=== PATIENT | male | born 1965 | race Hispanic/Latino ===

== ENCOUNTER 2019-07-04 08:51 | Inpatient (IN) | payer OTHER, SELFPAY ==
[2019-07-04] VITALS (7 sets, daily range): BP systolic 136–152; BP diastolic 59–86
[~2019-07-04] VITALS: Ht 172.7 cm; Wt 781.6 kg
[~2019-07-04 08:51] MED LIST: ASPI-1005 PO; ATOR20TA65 PO; LISI-617 PO; METF-446 PO; METO25 PO; PRAS10TA6 PO
[2019-07-04 09:41] LABS: BASOPHILS % (AUTO) 1.1 % (0.0-5.0); EOSINOPHILS % (AUTO) 6.1 % (0.0-8.0); HEMATOCRIT 44.9 % (42-54); LYMPHOCYTES % (AUTO) 22.8 % (21.0-51.0); MEAN CORPUSCULAR HEMOGLOBIN 27.5 pg (27.0-33.0); MEAN CORPUSCULAR HGB CONC 33.5 g/dL (32.0-36.0); MEAN CORPUSCULAR VOLUME 82.1 fL (79-99); MONOCYTES % (AUTO) 5.5 % (3.0-13.0); NEUTROPHILS % (AUTO) 64.5 % (40.0-77.0); PLATELET COUNT (AUTO) 201 K/uL (130-400); RED BLOOD CELL COUNT(AUTO) 5.47 MIL/uL (4.50-6.20); RED CELL DISTRIBUTION WIDTH 13.4 % (11.0-15.5); WHITE BLOOD COUNT (AUTO) 7.6 K/uL (4.8-10.8)
[2019-07-04 09:51] LABS: CREATININE 0.9 mg/dL (0.5-1.5); INR 0.92 (0.85-1.15); PARTIAL THROMBOPLASTIN TIME 27.1 SEC (26.3-35.5); POTASSIUM 4.1 mmol/L (3.5-5.1); PROTHROMBIN TIME 9.7 SEC (9.6-11.6)
[2019-07-04] MEDS ORDERED: NITROGLYCERIN 1GM/1 INCH PACKET TD ONE (09:51)
[2019-07-04 09:56] LABS: ALBUMIN 3.5 g/dL (3.5-5.0); BILIRUBIN,TOTAL 0.3 mg/dL (0.2-1.0); TOTAL PROTEIN, SERUM 7.6 g/dL (6.0-8.3)
[2019-07-04 10:34] LABS: APPEARANCE,URINE CLEAR (CLEAR); BILIRUBIN,URINE NEGATIVE (NEGATIVE); COLOR,URINE YELLOW (YELLOW); GLUCOSE, URINE (UA) >=1000 mg/dL (NEGATIVE); KETONES,URINE 5 mg/dL (NEGATIVE); LEUKOCYTE ESTERASE ,URINE NEGATIVE (NEGATIVE); NITRATE,URINE NEGATIVE (NEGATIVE); OCCULT BLOOD,URINE NEGATIVE (NEGATIVE); PH,URINE 5.5 (5.0-8.0); PROTEIN,URINE 30 mg/dL (NEGATIVE); UROBILINOGEN,URINE 0.2 mg/dL (0.2-1.0)
[2019-07-04] MEDS ORDERED: MORPHINE SULFATE 4 MG/1ML SYG ONE (10:49)
[2019-07-04] MEDS ORDERED: SODIUM CHLORIDE 0.9% 1000ML 1,000 ML IV ONE (10:50)
[2019-07-04] MEDS ORDERED: ONDANSETRON HCL 4 MG/2 ML VIAL ONE (11:01)
[2019-07-04 11:21] LABS: BACTERIA,URINE Rare /HPF (None Seen); RBC,URINE 0-1 /HPF (0-1); SQUAMOUS EPITHELIAL CELL,UR Rare /HPF (0-2); WBC,URINE 0-1 /HPF (0-1)
[2019-07-04] MEDS: SODIUM CHLORIDE 0.9% 1000ML 1,000 ML IV SCH ×2 (11:23→21:23)
[2019-07-04] MEDS ORDERED: NITROGLYCERIN 0.4 MG SL TAB SL ONE (11:24)
[2019-07-04] MEDS ORDERED: METOPROLOL TARTRATE 1 MG/ML 5ML VIAL IV ONE ×2 (11:26→11:32)
[2019-07-04 11:28] LABS: AMPHET/METH SCREEN,URINE NEGATIVE (NEGATIVE); BARBITURATE SCREEN, URINE NEGATIVE (NEGATIVE); BENZODIAZEPINES SCREEN,URINE NEGATIVE (NEGATIVE); CANNABINOID SCREEN,URINE NEGATIVE (NEGATIVE); COCAINE SCREEN,URINE NEGATIVE (NEGATIVE); OPIATE SCREEN,URINE NEGATIVE (NEGATIVE); PHENCYCLIDINE SCREEN,URINE NEGATIVE (NEGATIVE)
[2019-07-04] MEDS ORDERED: DEXTROSE 50%-WATER 50 ML DISP.SYRIN IV PRN (11:30)
[2019-07-04] MEDS: NITROGLYCERIN 1GM/1 INCH PACKET TD SCH ×4 (11:30→21:28)
[2019-07-04] MEDS ORDERED: ACETAMINOPHEN 325 MG TAB PO PRN (11:30)
[2019-07-04] MEDS: INSULIN HUMULIN R 100 UNIT/ML 3ML SQ SCH ×3 (11:30→21:49)
[2019-07-04] MEDS ORDERED: NITROGLYCERIN 0.4 MG SL TAB SL PRN (11:30)
[2019-07-04] MEDS ORDERED: GLUCAGON 1MG KIT 1 MG ML IM PRN (11:30)
[2019-07-04] MEDS ORDERED: ASPIRIN 325 MG TABLET ONE (11:44)
[2019-07-04] MEDS ORDERED: BIVALIRUDIN 250 MG/VIAL IV ONE (12:18)
[2019-07-04] MEDS ORDERED: IOHEXOL-350 50ML VIAL IV ONE (12:18)
[2019-07-04] MEDS ORDERED: LIDOCAINE HCL 2% 20ML ONE (12:18)
[2019-07-04] MEDS ORDERED: NITROGLYCERIN 5 MG/ML 10 ML VIAL IV ONE (12:18)
[2019-07-04] MEDS ORDERED: IOHEXOL-350 75 ML VIAL IV ONE (12:18)
[2019-07-04] MEDS ORDERED: MIDAZOLAM HCL 1 MG/ML 2ML VIAL ONE (13:09)
[2019-07-04] MEDS ORDERED: SODIUM CHLORIDE 0.9% 1000ML 1,000 ML IV SCH (13:49)
[2019-07-04] MEDS: METOPROLOL TARTRATE 25 MG TAB PO SCH ×2 (14:00→22:00)
[2019-07-04] MEDS ORDERED: VANCOMYCIN IV SCH (14:15)
[2019-07-04] MEDS ORDERED: [UNRECOGNIZED DRUG - OTHER] IV SCH (14:15)
[2019-07-04] MEDS ORDERED: COMPOUND IV REFRIGERATED 1 EACH IVSOLN MISC PRN (14:30)
--- NOTE | 2019-07-04 19:30 | NUR ---
WAS NOTIFIED PT HAD A THREE SECOND PAUSE PER TELE MONITOR. STIRP PRINTED AND VERIFIED.
--- NOTE | 2019-07-04 19:40 | NUR ---
DR. LAWRENCE NOTIFIED OF PAUSE. STATED TO CONTINUE TO MONITOR. NO DISTRESS NOTED.
[2019-07-04] MEDS ORDERED: INSULIN GLARGINE 100 UNITS/ML 10 ML VIAL SQ SCH (21:00)
[2019-07-04] MEDS: FAMOTIDINE/PF 20 MG/2 ML VIAL IV SCH (21:29)
[2019-07-04] MEDS: ATORVASTATIN CALCIUM 20 MG TABLET PO SCH (21:29)
--- NOTE | 2019-07-04 21:30 | NUR ---
PT STATED HAVING CHEST PAIN AND HEADACHE DUE TO THE NITRO. PT HAS BEEN HAVING ON AND OFF CHEST PAIN THROUGHOUT THE DAY. CONTINUES ON IV FLUIDS. NITRO PATCH APPLIED. TYLENOL PRN GIVEN FOR PAIN.
[2019-07-05] VITALS (10 sets, daily range): BP systolic 133–170; BP diastolic 71–85
[2019-07-05] MEDS: NITROGLYCERIN 1GM/1 INCH PACKET TD SCH ×5 (01:09→21:51)
[2019-07-05] MEDS: METOPROLOL TARTRATE 25 MG TAB PO SCH ×3 (01:11→21:51)
[2019-07-05 03:56] LABS: HEMATOCRIT 39.7 % (42-54); MEAN CORPUSCULAR HEMOGLOBIN 27.9 pg (27.0-33.0); MEAN CORPUSCULAR HGB CONC 33.4 g/dL (32.0-36.0); MEAN CORPUSCULAR VOLUME 83.5 fL (79-99); NUCLEATED RED BLOOD CELLS 0.2 % (0.0-0.19); PLATELET COUNT (AUTO) 179 K/uL (130-400); RED BLOOD CELL COUNT(AUTO) 4.76 MIL/uL (4.50-6.20); RED CELL DISTRIBUTION WIDTH 13.5 % (11.0-15.5); WHITE BLOOD COUNT (AUTO) 9.9 K/uL (4.8-10.8)
[2019-07-05 04:08] LABS: ALBUMIN 2.7 g/dL (3.5-5.0); BILIRUBIN,TOTAL 0.1 mg/dL (0.2-1.0); CREATININE 0.9 mg/dL (0.5-1.5); POTASSIUM 4.4 mmol/L (3.5-5.1); TOTAL PROTEIN, SERUM 5.8 g/dL (6.0-8.3)
[2019-07-05 04:17] LABS: HEMOGLOBIN A1C 12.2 % (4.0-6.0)
[2019-07-05] MEDS: SODIUM CHLORIDE 0.9% 1000ML 1,000 ML IV SCH (05:18)
--- NOTE | 2019-07-05 07:32 | NUR ---
HTN BP 168/35 BP MORNING MEDS GIVEN. BP RECHECK @ 152/77 WILL CONTINUE TO MONITOR. PRIMARY MD TO BE NOTIFIED.
--- NOTE | 2019-07-05 07:45 | NUR ---
AM ASSESSMENT PT LAYING SITTING IN BED, WATCHING TV. FAMILY @ BEDSIDE. A/O X 3. NO SOB. NO DISTRESS NOTED. DENIES CHEST PAIN OR DISCOMFORT. DENIES PALPITATIONS. TELE: SB 50-SR 60s. DENIES N/V AND/OR DIARRHEA. UP AD LIANA. INSTRUCTED TO CALL FOR ASSISTANCE. CALL [facility] W/IN REACH. PENDING DR ORTEGA CONSULT FOR POSS CABG TOMORROW.
[2019-07-05] MEDS: ASPIRIN 325 MG TABLET PO SCH (08:11)
[2019-07-05] MEDS: FAMOTIDINE/PF 20 MG/2 ML VIAL IV SCH ×2 (08:12→21:51)
[2019-07-05] MEDS ORDERED: LISINOPRIL 10 MG TABLET PO SCH (09:00)
[2019-07-05] MEDS: INSULIN HUMULIN R 100 UNIT/ML 3ML SQ SCH ×3 (12:13→21:44)
[2019-07-05] MEDS ORDERED: LABETALOL HCL 5 MG/ML 20ML VIAL IV PRN (12:45)
[2019-07-05] MEDS ORDERED: ACETAMINOPHEN EXTRA STRENGTH 500 MG TABLET PO PRN (13:15)
[2019-07-05] MEDS ORDERED: MORPHINE SULFATE 2 MG/ML 1ML SYG IVP PRN (13:15)
--- NOTE | 2019-07-05 14:00 | NUR ---
HTN BP 163/85. MF NOTIFIED. NO BP PRN MEDS PROFILED. ORDER RECEIVED FOR LABETALOL IV PRN. @ 1336 10 MG IV LABETALOL GIVEN. BP RECHECK 133/72.
--- NOTE | 2019-07-05 15:40 | NUR ---
DC PLAN VISITED WITH PATIENT. PATIENT LIVES WITH FRIEND. INDEPENDENT ABLE TO PERFORM ADL'S. PATIENT HAS NO SERVICES OR DME'S. FEELS SAFE TO RETURN HOME. PENDING CABG. Addendum: 07/05/19 at 1542 by CELINA BONILLA RN CM Amended: Links added.
[2019-07-05] MEDS: INSULIN GLARGINE 100 UNITS/ML 10 ML VIAL SQ SCH (21:50)
[2019-07-05] MEDS: ATORVASTATIN CALCIUM 20 MG TABLET PO SCH (21:51)
[2019-07-06] VITALS (47 sets, daily range): BP systolic 70–157; BP diastolic 42–84
[2019-07-06] MEDS: NITROGLYCERIN 1GM/1 INCH PACKET TD SCH (02:00)
[2019-07-06 04:17] LABS: HEMATOCRIT 40.2 % (42-54); MEAN CORPUSCULAR HEMOGLOBIN 27.6 pg (27.0-33.0); MEAN CORPUSCULAR HGB CONC 33.3 g/dL (32.0-36.0); MEAN CORPUSCULAR VOLUME 82.9 fL (79-99); PLATELET COUNT (AUTO) 197 K/uL (130-400); RED BLOOD CELL COUNT(AUTO) 4.85 MIL/uL (4.50-6.20); RED CELL DISTRIBUTION WIDTH 13.7 % (11.0-15.5); WHITE BLOOD COUNT (AUTO) 8.9 K/uL (4.8-10.8)
[2019-07-06 04:23] LABS: INR 0.92 (0.85-1.15); PARTIAL THROMBOPLASTIN TIME 26.8 SEC (26.3-35.5); PROTHROMBIN TIME 9.7 SEC (9.6-11.6)
[2019-07-06 04:30] LABS: ALBUMIN 2.9 g/dL (3.5-5.0); BILIRUBIN,TOTAL 0.2 mg/dL (0.2-1.0); MAGNESIUM 1.7 mg/dL (1.80-2.40); POTASSIUM 3.7 mmol/L (3.5-5.1); TOTAL PROTEIN, SERUM 6.2 g/dL (6.0-8.3)
[2019-07-06 04:31] LABS: BAND NEUTROPHILS % (MANUAL) 4 % (0-2); EOSINOPHILS % (MANUAL) 10 % (1-6); LYMPHOCYTES % (MANUAL) 25 % (22-44); MAN.DIFF COMMENT-IMPRESSION MANUAL DIFFERENTIAL; MONOCYTES % (MANUAL) 7 % (2-9); PLATELET MORPHOLOGY COMMENT ADEQUATE; SEGMENTED NEUTROPHILS % 54 % (40-70)
[2019-07-06] MEDS ORDERED: MAGNESIUM 2GM PREMIX 50ML 50 ML IV PRN (04:45)
[2019-07-06] MEDS: METOPROLOL TARTRATE 25 MG TAB PO SCH (05:48)
[2019-07-06] MEDS: INSULIN GLARGINE 100 UNITS/ML 10 ML VIAL SQ SCH (06:13)
[2019-07-06] MEDS: INSULIN HUMULIN R 100 UNIT/ML 3ML SQ SCH (06:14)
[2019-07-06] MEDS ORDERED: NITROGLYCERIN 50 MG/D5% WATER 1 BOT ONE (07:14)
[2019-07-06] MEDS ORDERED: SODIUM CHLORIDE 0.9% 1000ML 1,000 ML IV ONE (07:37)
[2019-07-06] MEDS ORDERED: ESMOLOL HCL 10 MG/ML 10 ML VIAL ONE (07:47)
[2019-07-06] MEDS ORDERED: PROTAMINE SULFATE 10 MG/ML 25ML VIAL IV ONE (07:47)
[2019-07-06] MEDS ORDERED: FENTANYL CITRATE PF 50 MCG/1 ML 20ML VIAL IJ ONE (07:48)
[2019-07-06] MEDS ORDERED: MIDAZOLAM HCL 1 MG/ML 5ML VIAL ONE (07:48)
[2019-07-06] MEDS ORDERED: AMINOCAPROIC ACID 250 MG/ML 20 ML VIAL IV ONE (07:48)
[2019-07-06] MEDS ORDERED: NOREPINEPHRINE BITARTRATE 1 MG/1 ML ML IV ONE (07:48)
[2019-07-06] MEDS ORDERED: SODIUM BICARB 50MEQ 50ML VIAL ONE (07:48)
[2019-07-06] MEDS ORDERED: EPINEPHRINE 1 MG/ML AMPULE ONE (07:48)
[2019-07-06] MEDS ORDERED: LIDOCAINE PF 2% 5ML ABBOJECT ONE (07:48)
[2019-07-06] MEDS ORDERED: HEPARIN SODIUM 1000UNIT/ML 10ML VIAL ONE (07:48)
[2019-07-06] MEDS ORDERED: PROPOFOL 10 MG/ML 20ML VIAL IV ONE (07:48)
[2019-07-06] MEDS ORDERED: ROCURONIUM 10MG/1ML SYR 10 MG/ML ML ONE ×2 (07:49→09:32)
[2019-07-06] MEDS ORDERED: LIDOCAINE HCL-MPF 1% 5ML AMP IJ ONE (07:49)
[2019-07-06] MEDS ORDERED: ETOMIDATE 2 MG/ML 10 ML VIAL ONE (07:50)
[2019-07-06] MEDS ORDERED: AMIODARONE HCL 50 MG/ML 3 ML VIAL ONE (07:51)
[2019-07-06] MEDS ORDERED: MAGNESIUM SULFATE 1 GM/2 ML VIAL ONE (07:52)
[2019-07-06] MEDS ORDERED: CEFAZOLIN SODIUM 1 GM VIAL IVP PRN (08:30)
[2019-07-06 08:38] LABS: ABG BASE EXCESS -2.2 mmol/L (-2.0-3.0); ABG HCO3 20.8 mmol/L (21.0-28.0); ABG OXYGEN SATURATION 99.6 % (95.0-99.0); ABG PCO2 31 mmHg (35-48)
[2019-07-06] MEDS ORDERED: OCTYL 2-CYANOACRYLATE 1 EACH TP ONE (08:42)
[2019-07-06] MEDS ORDERED: PAPAVERINE HCL 30 MG/ML 2ML VIAL ONE (08:42)
[2019-07-06] MEDS ORDERED: BACITRACIN 50,000 UNIT VIAL ONE (08:42)
[2019-07-06] MEDS: ASPIRIN 325 MG TABLET PO SCH (09:00)
[2019-07-06] MEDS: FAMOTIDINE/PF 20 MG/2 ML VIAL IV SCH ×3 (09:00→20:48)
[2019-07-06] MEDS ORDERED: SODIUM CHLORIDE 0.9% 500ML 500 ML IV SCH (09:06)
[2019-07-06 09:13] LABS: ABG BASE EXCESS 1.7 mmol/L (-2.0-3.0); ABG OXYGEN SATURATION 99.5 % (95.0-99.0); ABG PCO2 40 mmHg (35-48)
[2019-07-06] MEDS ORDERED: ACETAMINOPHEN 650 MG SUPPOSITORY RC PRN (09:15)
[2019-07-06] MEDS ORDERED: AMINOCAPROIC ACID 15,000 MG in SODIUM CHLORIDE 0.9% 250 ML IV SCH (09:15)
[2019-07-06] MEDS ORDERED: NOREPINEPHRINE 4MG/NS 250ML 250 ML IV PRN (09:15)
[2019-07-06] MEDS ORDERED: DEXTROSE 50%-WATER 50 ML DISP.SYRIN IV PRN (09:15)
[2019-07-06] MEDS ORDERED: SODIUM CHLORIDE 0.9% 250 ML IV PRN (09:15)
[2019-07-06] MEDS ORDERED: NITROGLYCERIN 50 MG/D5% WATER 250 BOT IV SCH (09:15)
[2019-07-06] MEDS ORDERED: MORPHINE SULFATE 2 MG/ML 1ML SYG IV PRN (09:15)
[2019-07-06] MEDS ORDERED: SODIUM BICARB 50MEQ 50ML VIAL IV PRN (09:15)
[2019-07-06] MEDS ORDERED: SODIUM CHLORIDE 0.9% 10 ML VIAL IVP PRN (09:15)
[2019-07-06] MEDS ORDERED: PROPOFOL 1000 MG/100 ML 100 ML IV PRN (09:15)
[2019-07-06] MEDS ORDERED: ACETAMINOPHEN 325 MG TAB PO PRN ×2 (09:15)
[2019-07-06] MEDS ORDERED: INSULIN REGULAR, HUMAN 3ML 100 UNIT in SODIUM CHLORIDE 0.9% 99 ML IV SCH ×2 (09:15)
[2019-07-06] MEDS ORDERED: SODIUM CHLORIDE 0.9% 1000ML 1,000 ML IV SCH (09:15)
[2019-07-06] MEDS ORDERED: MORPHINE SULFATE 4 MG/1ML SYG IV PRN (09:15)
[2019-07-06] MEDS ORDERED: POTASSIUM PHOS 15 mMOL+NS250ML 250 ML IV PRN (09:15)
[2019-07-06] MEDS ORDERED: ALBUMIN (HUMAN) 5% 250 ML IV PRN (09:15)
[2019-07-06] MEDS ORDERED: GLUCAGON 1MG KIT 1 MG ML IM PRN (09:15)
[2019-07-06] MEDS ORDERED: EPINEPHRINE 8 MG in DEXTROSE 5%-WATER 250 ML IV PRN (09:15)
[2019-07-06 09:41] LABS: ABG BASE EXCESS 1.6 mmol/L (-2.0-3.0); ABG HCO3 24.7 mmol/L (21.0-28.0); ABG OXYGEN SATURATION 99.5 % (95.0-99.0); ABG PCO2 34 mmHg (35-48)
[2019-07-06 10:18] LABS: ABG BASE EXCESS 1.6 mmol/L (-2.0-3.0); ABG HCO3 24.8 mmol/L (21.0-28.0); ABG OXYGEN SATURATION 99.2 % (95.0-99.0); ABG PCO2 34 mmHg (35-48)
[2019-07-06] MEDS ORDERED: FENTANYL CITRATE PF 50 MCG/1 ML 2ML VIAL ONE ×3 (10:18→10:19)
--- NOTE | 2019-07-06 10:38 | NUR ---
RECEIVED PT FROM OR. S/P CABG X3. PT ACCOMPANIED BY OR NURSES AND DR. MENEZES. PT ORALLY INTUBATED AND PLACED ON PRESCRIBED VENTILATOR SETTINGS. RT IJ CORDIS INTACT. PT ON AMICAR AT 50 ML/HR, LEVOPHED AT 1 MCGS/MIN AND EPI DRIP AT 0.01 MCGS/KG/MIN. LEFT RADIAL ARTERIAL LINE INTACT WITH ADEQUATE WAVEFORM. MID STERNAL DRESSING DRY AND INTACT. CT X 1 WITH MODERATE SANGUINOUS OUTPUT. NO AIR LEAK OR CREPITUS NOTED. FC TO GRAVITY WITH ADEQUATE URINE OUTPUT. LEFT DONOR LEG WITH SIM WRAP. PESAL AND RADIAL PULSES STRONG AND PALPABLE. PT SR 62 ON BEDSIDE MONITOR WITH NO ECTOPY NOTED. HEMODYNAMICS NOTED IN EMR. LABS/CXR OBTAINED ORDERED. CONTINUE TO MONITOR PT.
[2019-07-06 11:08] LABS: ABG BASE EXCESS 0.4 mmol/L (-2.0-3.0); ABG HCO3 23.2 mmol/L (21.0-28.0); ABG OXYGEN SATURATION 98.7 % (95.0-99.0); ABG PCO2 32 mmHg (35-48)
--- NOTE | 2019-07-06 11:15 | NUR ---
FAMILY AT BEDSIDE. UPDATED IN PT CONDITION. ALL QUESTIONS ANSWERED.
[2019-07-06 11:27] LABS: HEMATOCRIT 37.3 % (42-54); MEAN CORPUSCULAR HEMOGLOBIN 27.2 pg (27.0-33.0); MEAN CORPUSCULAR HGB CONC 33.2 g/dL (32.0-36.0); MEAN CORPUSCULAR VOLUME 81.9 fL (79-99); PLATELET COUNT (AUTO) 188 K/uL (130-400); RED BLOOD CELL COUNT(AUTO) 4.55 MIL/uL (4.50-6.20)
[2019-07-06 11:43] LABS: CREATININE 0.7 mg/dL (0.5-1.5); MAGNESIUM 1.5 mg/dL (1.80-2.40); PHOSPHORUS 3.3 mg/dL (2.5-4.9); POTASSIUM 4.1 mmol/L (3.5-5.1)
--- NOTE | 2019-07-06 12:00 | NUR ---
[facility] CALLED AND NOTIFIED OF PT ARRIVAL TO UNIT.
[2019-07-06] MEDS: ONDANSETRON HCL 4 MG/2 ML VIAL IV PRN (12:04)
[2019-07-06 12:18] LABS: INR 0.99 (0.85-1.15); PARTIAL THROMBOPLASTIN TIME 24.3 SEC (26.3-35.5); PROTHROMBIN TIME 10.4 SEC (9.6-11.6)
[2019-07-06] MEDS: MAGNESIUM 2GM PREMIX 50ML 50 ML IV PRN (12:37)
--- NOTE | 2019-07-06 13:15 | NUR ---
PT AWAKE, ABLE TO FOLLOW SIMPLE COMMANDS. PT WITH STRONG BILATERAL HAND SUPERVISOR MOLD YARD AND ABLE TO SUSTAIN HEADLIFT. WEANING FROM VENT INITIATED PER CVR PROTOCOL. PT INSTRUCTED IN PROCESS. NODS UNDERSTANDING.
[2019-07-06 13:53] LABS: ABG HCO3 20.4 mmol/L (21.0-28.0); ABG OXYGEN SATURATION 98.5 % (95.0-99.0); ABG PCO2 28 mmHg (35-48)
[2019-07-06] MEDS: CEFAZOLIN SODIUM 1 GM VIAL IV SCH ×2 (13:59→20:47)
[2019-07-06] MEDS: POTASSIUM CHLORIDE 20MEQ/100ML 100 ML IV PRN ×3 (13:59→19:15)
[2019-07-06] MEDS ORDERED: VANCOMYCIN 1.25 GM in SODIUM CHLORIDE 0.9% 250 ML IV SCH (14:30)
[2019-07-06 14:50] LABS: ABG BASE EXCESS 5.7 mmol/L (-2.0-3.0); ABG HCO3 28.1 mmol/L (21.0-28.0); ABG OXYGEN SATURATION 98.4 % (95.0-99.0); ABG PCO2 33 mmHg (35-48)
[2019-07-06 15:21] LABS: HEMATOCRIT 32.4 % (42-54); MEAN CORPUSCULAR HGB CONC 32.9 g/dL (32.0-36.0); MEAN CORPUSCULAR VOLUME 81.9 fL (79-99); PLATELET COUNT (AUTO) 194 K/uL (130-400); RED BLOOD CELL COUNT(AUTO) 3.95 MIL/uL (4.50-6.20); RED CELL DISTRIBUTION WIDTH 13.3 % (11.0-15.5); WHITE BLOOD COUNT (AUTO) 16.6 K/uL (4.8-10.8)
[2019-07-06 15:27] LABS: CREATININE 0.9 mg/dL (0.5-1.5)
[2019-07-06] MEDS ORDERED: PROTAMINE SULFATE 10 MG/ML 5 ML VIAL IVP SCH (15:30)
--- NOTE | 2019-07-06 15:30 | NUR ---
DR. ORTEGA CALLED AND NOTIFIED OF EPISODE OF HYPOTENSION SBP 60S. ALBUMIN GIVEN AND SBP IMPROVED TO 100S. NOTIFIED OF CHEST TUBE OUTPUT 100 ML/HR/LABS/ABG RESULTS. NEW ORDERS RECEIVED AND NOTED.
[2019-07-06] MEDS ORDERED: SODIUM CHLORIDE 0.9% 50 ML IV ONE (15:32)
[2019-07-06] MEDS ORDERED: PROTAMINE SULFATE 50 MG in SODIUM CHLORIDE 0.9% 50 ML IVP SCH (15:45)
--- NOTE | 2019-07-06 16:00 | NUR ---
PROTAMINE AND PLATELETS GIVEN ORDERED. PT TOLERATED WELL. DECREASED CHEST TUBE OUTPUT NOTED. SBP 120S. PT AWAKE AND COOPERATIVE. WEANING FROM VENTILATOR PER CVR PROTOCOL INITIATED. TOLERATING WELL.
--- NOTE | 2019-07-06 16:05 | NUR ---
TRANSFUSING PRBC ORDERED. NO ADVERSE REACTION NOTED. TOLERATING WELL.
[2019-07-06 16:56] LABS: ABG BASE EXCESS 2.8 mmol/L (-2.0-3.0); ABG HCO3 23.6 mmol/L (21.0-28.0); ABG OXYGEN SATURATION 98.2 % (95.0-99.0); ABG PCO2 25 mmHg (35-48)
--- NOTE | 2019-07-06 17:00 | NUR ---
PT HEMODYNAMICALLY STABLE, TOLERATING WEANING FROM VENT. AWAKE ABLE TO SUSTAIN HEAD LIFT AND WITH STRONG BILATERAL HAND FLIGHT TEST SUPERVISOR. ABG OBTAINED AND WITHIN ORDERED PARAMETERS. PT WITH NIF 42 AND VITAL CAPACITY. PT EXTUBATED PER CV PROTOCOL. PLACED ON AFM 40 %. TOLERATING WELL. NO DISTRESS NOTED. INSTRUCTED IN DEEP BREATHING AND COUGHING WELL IN USE OF HEART PILLOW. NODS UNDERSTANDING.
[2019-07-06] MEDS: CALCIUM GLUCONATE 1 GM in SODIUM CHLORIDE 0.9% 50 ML IV PRN ×2 (17:29→17:48)
[2019-07-06] MEDS: TRAMADOL HCL 50 MG TABLET PO PRN (18:25)
[2019-07-06 19:00] LABS: ABG BASE EXCESS 0.8 mmol/L (-2.0-3.0); ABG HCO3 24.9 mmol/L (21.0-28.0); ABG PCO2 38 mmHg (35-48)
[2019-07-06] MEDS: ATORVASTATIN CALCIUM 20 MG TABLET PO SCH (20:47)
[2019-07-07] VITALS (47 sets, daily range): BP systolic 113–178; BP diastolic 52–91
[2019-07-07 04:53] LABS: HEMATOCRIT 34.6 % (42-54); MEAN CORPUSCULAR HEMOGLOBIN 27.9 pg (27.0-33.0); MEAN CORPUSCULAR HGB CONC 33.7 g/dL (32.0-36.0); MEAN CORPUSCULAR VOLUME 82.9 fL (79-99); PLATELET COUNT (AUTO) 215 K/uL (130-400); RED BLOOD CELL COUNT(AUTO) 4.17 MIL/uL (4.50-6.20); RED CELL DISTRIBUTION WIDTH 13.4 % (11.0-15.5); WHITE BLOOD COUNT (AUTO) 11.4 K/uL (4.8-10.8)
[2019-07-07 04:59] LABS: INR 1.02 (0.85-1.15); PARTIAL THROMBOPLASTIN TIME 28.4 SEC (26.3-35.5); PROTHROMBIN TIME 10.7 SEC (9.6-11.6)
[2019-07-07 05:18] LABS: CREATININE 0.7 mg/dL (0.5-1.5); MAGNESIUM 1.6 mg/dL (1.80-2.40); PHOSPHORUS 3.3 mg/dL (2.5-4.9); POTASSIUM 3.9 mmol/L (3.5-5.1)
[2019-07-07] MEDS: POTASSIUM CHLORIDE 20MEQ/100ML 100 ML IV PRN (06:24)
[2019-07-07] MEDS: CEFAZOLIN SODIUM 1 GM VIAL IV SCH (06:24)
[2019-07-07] MEDS: MAGNESIUM 2GM PREMIX 50ML 50 ML IV PRN ×2 (06:25→11:35)
[2019-07-07] MEDS: TRAMADOL HCL 50 MG TABLET PO PRN ×2 (06:49→16:41)
[2019-07-07] MEDS: ONDANSETRON HCL 4 MG/2 ML VIAL IV PRN (07:27)
[2019-07-07] MEDS: ASPIRIN 325 MG TABLET PO SCH (08:14)
[2019-07-07] MEDS: FAMOTIDINE/PF 20 MG/2 ML VIAL IV SCH ×4 (08:14→20:52)
[2019-07-07] MEDS: FUROSEMIDE 10 MG/ML 2ML VIAL IV SCH ×2 (08:14→20:41)
[2019-07-07] MEDS: CALCIUM GLUCONATE 1 GM in SODIUM CHLORIDE 0.9% 50 ML IV PRN ×2 (09:25→09:26)
[2019-07-07 11:19] LABS: MAGNESIUM 1.9 mg/dL (1.80-2.40); POTASSIUM 4.1 mmol/L (3.5-5.1)
--- NOTE | 2019-07-07 19:02 | NUR ---
HAND OFF REPORT GIVEN TO VEDA MOLINA
[2019-07-07] MEDS: ATORVASTATIN CALCIUM 20 MG TABLET PO SCH (20:51)
[2019-07-07] MEDS: FAMOTIDINE 20MG TAB 20 MG TAB PO SCH (20:51)
[2019-07-08] VITALS (23 sets, daily range): BP systolic 112–165; BP diastolic 62–117
[2019-07-08] MEDS: TRAMADOL HCL 50 MG TABLET PO PRN ×4 (02:22→22:49)
[2019-07-08 04:23] LABS: HEMATOCRIT 33.1 % (42-54); MEAN CORPUSCULAR HEMOGLOBIN 27.7 pg (27.0-33.0); MEAN CORPUSCULAR HGB CONC 33.3 g/dL (32.0-36.0); MEAN CORPUSCULAR VOLUME 83.2 fL (79-99); PLATELET COUNT (AUTO) 189 K/uL (130-400); RED BLOOD CELL COUNT(AUTO) 3.98 MIL/uL (4.50-6.20); RED CELL DISTRIBUTION WIDTH 13.8 % (11.0-15.5); WHITE BLOOD COUNT (AUTO) 11.7 K/uL (4.8-10.8)
[2019-07-08 04:31] LABS: CREATININE 0.7 mg/dL (0.5-1.5); POTASSIUM 3.5 mmol/L (3.5-5.1)
[2019-07-08] MEDS: POTASSIUM CHLORIDE 20MEQ/100ML 100 ML IV PRN (06:37)
[2019-07-08] MEDS ORDERED: METOPROLOL TARTRATE 25 MG TAB PO SCH (09:00)
[2019-07-08] MEDS: FAMOTIDINE 20MG TAB 20 MG TAB PO SCH ×2 (09:45→20:39)
[2019-07-08] MEDS: ENOXAPARIN SODIUM 30 MG/0.3 ML SQ SCH (09:45)
[2019-07-08] MEDS: ASPIRIN 325 MG TABLET PO SCH (09:45)
[2019-07-08] MEDS: FUROSEMIDE 20 MG TABLET PO SCH ×2 (09:46→17:08)
[2019-07-08] MEDS: METOPROLOL TARTRATE 25 MG TAB PO SCH (20:38)
[2019-07-08] MEDS: ATORVASTATIN CALCIUM 20 MG TABLET PO SCH (20:39)
[2019-07-09] VITALS (14 sets, daily range): BP systolic 112–136; BP diastolic 64–82
[2019-07-09 03:39] LABS: HEMATOCRIT 33.1 % (42-54); MEAN CORPUSCULAR HEMOGLOBIN 27.3 pg (27.0-33.0); MEAN CORPUSCULAR HGB CONC 32.5 g/dL (32.0-36.0); MEAN CORPUSCULAR VOLUME 84.2 fL (79-99); NUCLEATED RED BLOOD CELLS 0.1 % (0.0-0.19); PLATELET COUNT (AUTO) 200 K/uL (130-400); RED BLOOD CELL COUNT(AUTO) 3.93 MIL/uL (4.50-6.20); RED CELL DISTRIBUTION WIDTH 13.9 % (11.0-15.5); WHITE BLOOD COUNT (AUTO) 12.1 K/uL (4.8-10.8)
[2019-07-09 03:43] LABS: CREATININE 0.8 mg/dL (0.5-1.5); POTASSIUM 3.9 mmol/L (3.5-5.1)
[2019-07-09] MEDS: METOPROLOL TARTRATE 25 MG TAB PO SCH ×2 (09:04→20:31)
[2019-07-09] MEDS: ASPIRIN 325 MG TABLET PO SCH (09:04)
[2019-07-09] MEDS: FAMOTIDINE 20MG TAB 20 MG TAB PO SCH ×2 (09:04→20:31)
[2019-07-09] MEDS: FUROSEMIDE 20 MG TABLET PO SCH ×2 (09:04→18:03)
[2019-07-09] MEDS: ENOXAPARIN SODIUM 30 MG/0.3 ML SQ SCH (09:05)
--- NOTE | 2019-07-09 09:50 | NUR ---
CHEST TUBE DC'D PER DR. ORTEGA. PATIENT TOLERATED WELL. PROCEDURE WAS COMPLETED WITH NO COMPLICATIONS. WILL BE IN BEDREST UNTIL 1030AM.
[2019-07-09] MEDS: TRAMADOL HCL 50 MG TABLET PO PRN ×3 (09:53→20:31)
[2019-07-09] MEDS: ATORVASTATIN CALCIUM 20 MG TABLET PO SCH (20:30)
[2019-07-10 03:37] LABS: HEMATOCRIT 32.4 % (42-54); MEAN CORPUSCULAR HEMOGLOBIN 27.5 pg (27.0-33.0); MEAN CORPUSCULAR HGB CONC 33.2 g/dL (32.0-36.0); MEAN CORPUSCULAR VOLUME 82.7 fL (79-99); PLATELET COUNT (AUTO) 242 K/uL (130-400); RED BLOOD CELL COUNT(AUTO) 3.91 MIL/uL (4.50-6.20); RED CELL DISTRIBUTION WIDTH 13.5 % (11.0-15.5); WHITE BLOOD COUNT (AUTO) 10.4 K/uL (4.8-10.8)
[2019-07-10 03:41] VITALS: BP 137/77
[2019-07-10 03:44] LABS: CREATININE 0.8 mg/dL (0.5-1.5); POTASSIUM 3.7 mmol/L (3.5-5.1)
[2019-07-10] MEDS ORDERED: FURO20TA6 PO (07:05)
[2019-07-10] MEDS ORDERED: METO25 PO (07:05)
[2019-07-10] MEDS ORDERED: ATOR20TA65 PO (07:05)
[2019-07-10 07:13] VITALS: BP 123/69
[2019-07-10] MEDS: FAMOTIDINE 20MG TAB 20 MG TAB PO SCH (09:56)
[2019-07-10] MEDS: ENOXAPARIN SODIUM 30 MG/0.3 ML SQ SCH (09:56)
[2019-07-10] MEDS: ASPIRIN 325 MG TABLET PO SCH (09:56)
[2019-07-10] MEDS: METOPROLOL TARTRATE 25 MG TAB PO SCH (09:56)
[2019-07-10] MEDS: FUROSEMIDE 20 MG TABLET PO SCH (09:56)
[2019-07-10] MEDS: TRAMADOL HCL 50 MG TABLET PO PRN (10:17)
[2019-07-10 11:11] VITALS: BP 123/75
[2019-07-10] MEDS ORDERED: GLIP5TAB11 PO (14:14)
[2019-07-10 14:26] LABS: HEMOGLOBIN A1C 12.2 % (4.0-6.0)
--- NOTE | 2019-07-10 15:00 | NUR ---
PATIENT TOLERATED REMOVAL OF SUTURE FROM CHEST TUBE SITE.
--- NOTE | 2019-07-10 15:20 | NUR ---
DISCHARGE INSTRUCTIONS/INFORMATION GIVEN TO PATIENT AND SON AT BEDSIDE. TEACH BACK METHOD UTILIZED TO EDUCATE PATIENT ON DIET, STERNAL PRECAUTIONS, INCENTIVE SPIROMETER USE, AMBULATION, CARDIAC REHAB, WOUND CARE, MEDICATIONS, S/S TO MONITOR FOR, WHEN TO CALL MD, AND F/U APPOINTMENTS. PRESCRIPTIONS FOR NEW MEDICATIONS INCLUDED IN D/C PACKET. PIV REMOVED. TIP WAS INTACT. TELE PACK REMOVED AND RETURNED. ALL WOUNDS ARE OPEN TO AIR. ALL BELONGINGS WERE PACKED.
== END 2019-07-10 16:05 | disposition home or self-care (01) | DRG 234 ==
LOC: EDH 08:51 → 2DH 08:52 → 2CV 07-06 10:09 → 2BH 07-07 14:57 → 2AH 07-09 10:44
PROVIDERS: ADMIT Family Medicine; ATTEND Family Medicine
PROC: B41F1ZZ Fluoroscopy of Right Lower Extremity Arteries using Low Osmolar Contrast (ICD-10-PCS; principal; 2019-07-04)
PROC: B2111ZZ Fluoroscopy of Multiple Coronary Arteries using Low Osmolar Contrast (ICD-10-PCS; 2019-07-04)
PROC: 4A023N7 Measurement of Cardiac Sampling and Pressure, Left Heart, Percutaneous Approach (ICD-10-PCS; 2019-07-04)
PROC: B2151ZZ Fluoroscopy of Left Heart using Low Osmolar Contrast (ICD-10-PCS; 2019-07-04)
PROC: 02100Z9 Bypass Coronary Artery, One Artery from Left Internal Mammary, Open Approach (ICD-10-PCS; 2019-07-06)
PROC: 06BQ4ZZ Excision of Left Saphenous Vein, Percutaneous Endoscopic Approach (ICD-10-PCS; 2019-07-06)
PROC: 5A1221Z Performance of Cardiac Output, Continuous (ICD-10-PCS; 2019-07-06)
PROC: 30233R1 Transfusion of Nonautologous Platelets into Peripheral Vein, Percutaneous Approach (ICD-10-PCS; 2019-07-06)
PROC: 30233N1 Transfusion of Nonautologous Red Blood Cells into Peripheral Vein, Percutaneous Approach (ICD-10-PCS; 2019-07-06)
PROC: 021109W Bypass Coronary Artery, Two Arteries from Aorta with Autologous Venous Tissue, Open Approach (ICD-10-PCS; 2019-07-06 08:30)
DX: I25.110 Atherosclerotic heart disease of native coronary artery with unstable angina pectoris (principal); D68.9 Coagulation defect, unspecified; I16.1 Hypertensive emergency; J98.11 Atelectasis; E11.9 Type 2 diabetes mellitus without complications; E78.2 Mixed hyperlipidemia; F17.210 Nicotine dependence, cigarettes, uncomplicated; I10 Essential (primary) hypertension; I25.2 Old myocardial infarction; Z79.82 Long term (current) use of aspirin; Z79.899 Other long term (current) drug therapy; Z82.0 Family history of epilepsy and other diseases of the nervous system; Z82.49 Family history of ischemic heart disease and other diseases of the circulatory system; Z82.5 Family history of asthma and other chronic lower respiratory diseases; Z83.3 Family history of diabetes mellitus; Z91.19 Patient's noncompliance with other medical treatment and regimen; Z95.5 Presence of coronary angioplasty implant and graft; Z79.84 Long term (current) use of oral hypoglycemic drugs; Z88.8 Allergy status to other drugs, medicaments and biological substances; Z91.041 Radiographic dye allergy status
CPT/HCPCS: 36415; 36430; 71045; 80048; 80053; 80061; 80305; 81001; 82330; 82435; 82550; 82803; 82947; 82948; 83036; 83605; 83735; 84100; 84132; 84295; 84443; 84484; 85018; 85025; 85027; 85347; 85610; 85730; 86701; 86850; 86900; 86901; 86922; 86999; 87390; 93005; 93306; 93458; 93880; 94002; 94010; 94150; 97039; 99156; 99157; 99291; A7048; C1760; C1894; G0378; G0481; J0171; J0282; J0583; J0610; J0690; J1644; J1650; J1815; J1940; J2001; J2250; J2270; J2405; J2440; J2704; J2720; J3010; J3370; J3475; J3480; J3490; J7030; J7040; P9016; P9034; P9045; Q9967

== ENCOUNTER 2021-02-09 10:10 | Emergency (ER) | payer OTHER ==
[~2021-02-09 10:10] MED LIST changes: +FURO20TA6 PO; +GLIP5TAB11 PO; -LISI-617 PO; -PRAS10TA6 PO
[2021-02-09 10:45] LABS: BASOPHILS % (AUTO) 0.2 % (0.0-5.0); EOSINOPHILS % (AUTO) 0.8 % (0.0-8.0); HEMATOCRIT 33.7 % (42-54); LYMPHOCYTES % (AUTO) 13.3 % (21.0-51.0); MEAN CORPUSCULAR HEMOGLOBIN 26.3 pg (27.0-33.0); MEAN CORPUSCULAR HGB CONC 33.2 g/dL (32.0-36.0); MEAN CORPUSCULAR VOLUME 79.1 fL (79-99); MONOCYTES % (AUTO) 5.2 % (3.0-13.0); NEUTROPHILS % (AUTO) 79.9 % (40.0-77.0); PLATELET COUNT (AUTO) 384 K/uL (130-400); RED BLOOD CELL COUNT(AUTO) 4.26 MIL/uL (4.50-6.20); WHITE BLOOD COUNT (AUTO) 17.2 K/uL (4.8-10.8)
[2021-02-09 10:58] LABS: CREATININE 1.1 mg/dL (0.5-1.5); POTASSIUM 3.9 mmol/L (3.5-5.1)
[2021-02-09 11:03] LABS: ALBUMIN 2.9 g/dL (3.5-5.0); BILIRUBIN,TOTAL 0.7 mg/dL (0.2-1.0); TOTAL PROTEIN, SERUM 8.2 g/dL (6.0-8.3)
[2021-02-09] MEDS ORDERED: INSULIN HUMULIN R 100 UNIT/ML 3ML ONE (12:03)
[2021-02-09 12:43] LABS: ABG BASE EXCESS -0.2 mmol/L (-2.0-3.0); ABG HCO3 21.9 mmol/L (21.0-28.0); ABG OXYGEN SATURATION 96.8 % (95.0-99.0); ABG PCO2 29 mmHg (35-48)
[2021-02-09 13:43] LABS: APPEARANCE,URINE Clear (CLEAR); BILIRUBIN,URINE Negative (NEGATIVE); COLOR,URINE Yellow (YELLOW); GLUCOSE, URINE (UA) 250 mg/dL (NEGATIVE); KETONES,URINE Trace mg/dL (NEGATIVE); LEUKOCYTE ESTERASE ,URINE Negative (NEGATIVE); NITRATE,URINE Negative (NEGATIVE); OCCULT BLOOD,URINE Negative (NEGATIVE); PROTEIN,URINE POS 1+ mg/dL (NEGATIVE)
[2021-02-09 13:55] LABS: BACTERIA,URINE Rare /HPF (None Seen); RBC,URINE None Seen /HPF (0-1); SQUAMOUS EPITHELIAL CELL,UR 0-2 /HPF (0-2); WBC,URINE 0-1 /HPF (0-1)
== END 2021-02-09 14:39 | disposition home or self-care (01) ==
LOC: EDH 10:10
DX: J12.89 Other viral pneumonia (principal); Z20.822 Contact with and (suspected) exposure to COVID-19; I25.10 Atherosclerotic heart disease of native coronary artery without angina pectoris; E11.9 Type 2 diabetes mellitus without complications; Z87.891 Personal history of nicotine dependence; Z91.041 Radiographic dye allergy status
CPT/HCPCS: 36415; 36600; 71045; 80053; 81001; 82728; 82803; 84145; 84484; 85025; 85378; 87426; 93005; 96372; 99285; J1815; U0003